=== PATIENT | male | born 1960 | race African-American/Black ===

== ENCOUNTER 2017-11-03 18:50 | Emergency (ER) | payer MEDICAID, OTHER ==
[~2017-11-03] VITALS: Ht 175.3 cm; Wt 122.0 kg
[~2017-11-03 18:50] MED LIST: ASPI-1159 PO; CLON0.3T PO; DILT240C92 PO; LISI40TA4 PO
[2017-11-03] MEDS ORDERED: CLONIDINE 0.1MG TABLET PO ONE (20:15)
[2017-11-03] MEDS ORDERED: IBUPROFEN 600MG TABLET PO ONE (20:15)
[2017-11-03 22:01] VITALS: BP 149/92
== END 2017-11-03 22:01 | disposition home or self-care (01) ==
LOC: ER 18:50
DX: S09.8XXA Other specified injuries of head, initial encounter (principal); W22.8XXA Striking against or struck by other objects, initial encounter; Y93.89 Activity, other specified; Y92.89 Other specified places as the place of occurrence of the external cause
CPT/HCPCS: 70450; 99284

== ENCOUNTER 2018-04-19 10:59 | Inpatient (IN) | payer OTHER, SELFPAY ==
[~2018-04-19] VITALS: Ht 175.3 cm; Wt 125.7 kg
[2018-04-19] MEDS ORDERED: ASPIRIN 81MG TABLET PO ONE ×2 (11:30→12:30)
[2018-04-19 12:06] LABS: BASOPHILS % 0.7 % (0.0-2.0); EOSINOPHILS % 2.6 % (0.0-5.0); HEMATOCRIT. 48.2 % (42.0-52.0); HEMOGLOBIN. 16.2 g/dL (14.0-18.0); LYMPHOCYTES % 18.7 % (20.0-50.0); MEAN CORPUSCULAR HEMOGLOBIN 30.7 pg (28.0-32.0); MEAN CORPUSCULAR VOLUME 91.3 fL (80.0-94.0); MEAN PLATELET VOLUME 10.8 fl (7.4-10.4); MONOCYTES % 10.3 % (2.0-8.0); NEUTROPHILS % 67.7 % (40.0-76.0); PLATELET 194 x1000/uL (130-400); RED BLOOD CELL COUNT 5.28 mill/uL (4.7-6.1); RED CELL DISTRIBUTION WIDTH 13.9 % (11.6-14.6)
[2018-04-19 12:15] LABS: CHLORIDE 108 mEq/L (98-107)
[2018-04-19] MEDS ORDERED: FUROSEMIDE 40MG/4ML VIAL IV ONE (12:30)
[2018-04-19] MEDS ORDERED: ACETAMINOPHEN 325MG TABLET PO PRN (14:45)
[2018-04-19] MEDS ORDERED: IPRATROPIUM/ALBUTEROL 0.5-3(2.5)MG/3ML NEB INH PRN (14:45)
[2018-04-19] MEDS ORDERED: MAGNESIUM/ALUMINUM HYDROXIDE/SIMETHICONE 30ML UDC PO PRN (14:45)
[2018-04-19] MEDS ORDERED: DOCUSATE SODIUM 100MG CAPSULE PO PRN (14:45)
[2018-04-19] MEDS ORDERED: ONDANSETRON HCL 4MG/2ML INJ IV PRN (14:45)
[2018-04-19] MEDS ORDERED: GUAIFENESIN 200MG/10ML SUGAR FREE UDC PO PRN (14:45)
[2018-04-19] MEDS ORDERED: HYDROCODONE/ACETAMINOPHEN 5/325MG TABLET PO PRN (14:45)
[2018-04-19 16:41] LABS: CREATINE KINASE 395 IU/L (39-308)
[2018-04-19] MEDS ORDERED: LISINOPRIL 10MG TABLET PO NR (18:57)
[2018-04-19] MEDS ORDERED: POTASSIUM CHLORIDE 20MEQ TABLET SR PO NR (19:02)
[2018-04-19] MEDS: CLONIDINE 0.1MG TABLET PO PRN (19:14)
[2018-04-19 19:21] LABS: *BENZODIAZEPINES SCREEN URINE NEGATIVE (NEGATIVE)
[2018-04-19 19:22] LABS: *AMPHETAMINES SCREEN URINE NEGATIVE (NEGATIVE); *BARBITURATES SCREEN URINE NEGATIVE (NEGATIVE); *COCAINE SCREEN URINE NEGATIVE (NEGATIVE); CANNABINOID URINE SCREEN NEGATIVE (NEGATIVE); METHADONE URINE SCREEN NEGATIVE (NEGATIVE); OPIATES URINE SCREEN NEGATIVE (NEGATIVE); PHENCYCLIDINE URINE SCREEN NEGATIVE (NEGATIVE)
[2018-04-19 20:07] LABS: CHLORIDE 107 mEq/L (98-107)
[2018-04-19 21:00] VITALS: BP 186/143
[2018-04-19] MEDS: LISINOPRIL 20MG TABLET PO SCH (22:37)
[2018-04-19] MEDS ORDERED: PNEUMOCOCCAL 23-VAL P-SAC VAC 0.5 ML IM ONE (23:45)
[2018-04-20] VITALS: BP 161/108
[2018-04-20] MEDS: CLONIDINE 0.1MG TABLET PO PRN ×2 (00:13→06:11)
[2018-04-20 04:00] VITALS: BP_SYST 148; BP_SYST 161; BP_DIAS 102; BP_DIAS 108
[2018-04-20 07:04] LABS: CHLORIDE 108 mEq/L (98-107)
[2018-04-20 07:07] LABS: BASOPHILS % 0.7 % (0.0-2.0); EOSINOPHILS % 2.9 % (0.0-5.0); HEMATOCRIT. 46.2 % (42.0-52.0); HEMOGLOBIN. 15.2 g/dL (14.0-18.0); LYMPHOCYTES % 23.2 % (20.0-50.0); MEAN CORPUSCULAR HEMOGLOBIN 30.3 pg (28.0-32.0); MEAN CORPUSCULAR VOLUME 91.9 fL (80.0-94.0); MEAN PLATELET VOLUME 11.5 fl (7.4-10.4); MONOCYTES % 9.3 % (2.0-8.0); NEUTROPHILS % 63.9 % (40.0-76.0); PLATELET 176 x1000/uL (130-400); RED BLOOD CELL COUNT 5.03 mill/uL (4.7-6.1); RED CELL DISTRIBUTION WIDTH 14.1 % (11.6-14.6)
[2018-04-20 07:34] LABS: PHOSPHORUS 3.5 mg/dL (2.5-4.9)
[2018-04-20 07:37] LABS: LDL CHOLESTEROL 104 mg/dL (5-100)
[2018-04-20 07:39] LABS: CREATINE KINASE 272 IU/L (39-308); CREATINE KINASE MB FRACTION 4.3 ng/mL (0.5-3.6)
[2018-04-20 07:40] LABS: HDL CHOLESTEROL 28 mg/dL (40-59)
[2018-04-20 08:00] VITALS: BP 133/101
[2018-04-20] MEDS: OMEPRAZOLE 20MG CAPSULE EXTENDED RELEASE PO SCH (08:31)
[2018-04-20] MEDS: ENOXAPARIN 30MG/0.3ML SYR SUBCUT SCH ×2 (08:32→21:52)
[2018-04-20] MEDS: LISINOPRIL 20MG TABLET PO SCH ×2 (08:46→21:51)
[2018-04-20] MEDS: ASPIRIN 81MG EC TABLET PO SCH (08:50)
[2018-04-20] MEDS ORDERED: LISINOPRIL 10MG TABLET PO SCH (09:00)
[2018-04-20] MEDS ORDERED: FUROSEMIDE 40MG/4ML VIAL IVP SCH (11:45)
[2018-04-20 12:00] VITALS: BP 147/105
[2018-04-20] MEDS ORDERED: POTASSIUM CHLORIDE 20MEQ/PACKET PO SCH (13:00)
[2018-04-20] MEDS ORDERED: REGADENOSON 0.4 MG/5 ML IV ONE (13:00)
[2018-04-20] MEDS: AMLODIPINE 5MG TABLET PO SCH ×2 (13:00→21:51)
[2018-04-20 16:00] VITALS: BP 171/125
[2018-04-20] MEDS ORDERED: ONDANSETRON HCL 4MG/2ML INJ IV PRN (18:00)
[2018-04-20 19:24] LABS: CLARITY URINE CLEAR (CLEAR); COLOR URINE YELLOW (YELLOW); KETONES URINE NEGATIVE (NEGATIVE); LEUKOCYTE ESTERASE URINE NEGATIVE (NEGATIVE); NITRITE URINE NEGATIVE (NEGATIVE); OCCULT BLOOD URINE NEGATIVE (NEGATIVE); PH URINE 5.5 (4.5-8.0); PROTEIN URINE TRACE (NEGATIVE); SPECIFIC GRAVITY URINE 1.011 (1.005-1.030); UROBILINOGEN URINE 0.2 E.U./dL (0.2-1.0)
[2018-04-20] MEDS ORDERED: MAGNESIUM/ALUMINUM HYDROXIDE/SIMETHICONE 30ML UDC PO PRN (19:45)
[2018-04-21] VITALS: BP 137/92
[2018-04-21 04:00] VITALS: BP 148/100
[2018-04-21 06:51] LABS: BASOPHILS % 0.6 % (0.0-2.0); EOSINOPHILS % 2.3 % (0.0-5.0); HEMATOCRIT. 44.8 % (42.0-52.0); HEMOGLOBIN. 14.8 g/dL (14.0-18.0); MEAN CORPUSCULAR HEMOGLOBIN 30.6 pg (28.0-32.0); MEAN CORPUSCULAR VOLUME 92.5 fL (80.0-94.0); MEAN PLATELET VOLUME 11.7 fl (7.4-10.4); MONOCYTES % 8.2 % (2.0-8.0); NEUTROPHILS % 65.9 % (40.0-76.0); PLATELET 178 x1000/uL (130-400); RED BLOOD CELL COUNT 4.85 mill/uL (4.7-6.1); RED CELL DISTRIBUTION WIDTH 14.2 % (11.6-14.6)
[2018-04-21 08:00] VITALS: BP 148/101
[2018-04-21] MEDS: AMLODIPINE 5MG TABLET PO SCH (09:00)
[2018-04-21] MEDS: OMEPRAZOLE 20MG CAPSULE EXTENDED RELEASE PO SCH (09:00)
[2018-04-21] MEDS: ASPIRIN 81MG EC TABLET PO SCH (09:00)
[2018-04-21] MEDS: LISINOPRIL 20MG TABLET PO SCH (09:00)
[2018-04-21] MEDS: ENOXAPARIN 30MG/0.3ML SYR SUBCUT SCH (09:04)
[2018-04-21 10:50] VITALS: BP 146/99
[2018-04-21] MEDS ORDERED: REGADENOSON 0.4 MG/5 ML IV ONE (11:32)
[2018-04-21 13:10] LABS: PHOSPHORUS 4.3 mg/dL (2.5-4.9)
[2018-04-21] MEDS ORDERED: POTASSIUM CHLORIDE 20MEQ TABLET SR PO NR (14:30)
[2018-04-21] MEDS ORDERED: CARVEDILOL 3.125 MG TABLET PO SCH (14:30)
[2018-04-21] MEDS ORDERED: LOSARTAN POTASSIUM 50 MG TABLET PO SCH (14:30)
[2018-04-21 16:00] VITALS: BP 137/87
[2018-04-21 16:13] VITALS: BP 136/90
[2018-04-22] MEDS ORDERED: FAMOTIDINE 20MG TABLET PO SCH (09:00)
== END 2018-04-21 17:16 | disposition home or self-care (01) | DRG 194 ==
LOC: ER 11:37 → 7WST 13:07 → EDBEDREQ 13:18 → ENRESERV 19:52
PROVIDERS: ADMIT Internal Medicine; ATTEND Internal Medicine
DX: I13.0 Hypertensive heart and chronic kidney disease with heart failure and stage 1 through stage 4 chronic kidney disease, or unspecified chronic kidney disease (principal); N17.9 Acute kidney failure, unspecified; E44.1 Mild protein-calorie malnutrition; E66.01 Morbid (severe) obesity due to excess calories; E87.8 Other disorders of electrolyte and fluid balance, not elsewhere classified; I42.9 Cardiomyopathy, unspecified; K76.0 Fatty (change of) liver, not elsewhere classified; I50.43 Acute on chronic combined systolic (congestive) and diastolic (congestive) heart failure; E87.6 Hypokalemia; F17.200 Nicotine dependence, unspecified, uncomplicated; I49.3 Ventricular premature depolarization; N18.2 Chronic kidney disease, stage 2 (mild); Z68.41 Body mass index [BMI] 40.0-44.9, adult; Z82.49 Family history of ischemic heart disease and other diseases of the circulatory system
CPT/HCPCS: 36415; 71045; 76705; 78452; 80048; 80061; 80305; 82550; 82553; 83735; 83880; 84100; 84443; 84484; 85379; 90732; 93005; 93017; 93306; 93970; 96374; 99291; A9500; J1650; J1940; J2405; J2785

== ENCOUNTER 2018-05-07 10:47 | Emergency (ER) | payer MEDICAID ==
[~2018-05-07] VITALS: Ht 175.3 cm; Wt 123.0 kg
[~2018-05-07 10:47] MED LIST changes: -CLON0.3T PO; -DILT240C92 PO; -LISI40TA4 PO
[2018-05-07] MEDS ORDERED: AMLO5TAB88 PO (11:06)
[2018-05-07] MEDS ORDERED: CARV3.1242 PO (11:06)
[2018-05-07] MEDS ORDERED: FURO40TA5 PO (11:06)
[2018-05-07] MEDS ORDERED: LOSA50TA20 PO (11:06)
[2018-05-07 13:33] LABS: BASOPHILS % 0.5 % (0.0-2.0); EOSINOPHILS % 1.1 % (0.0-5.0); HEMATOCRIT. 48.1 % (42.0-52.0); HEMOGLOBIN. 15.9 g/dL (14.0-18.0); LYMPHOCYTES % 10.7 % (20.0-50.0); MEAN CORPUSCULAR HEMOGLOBIN 30.5 pg (28.0-32.0); MEAN CORPUSCULAR VOLUME 92.1 fL (80.0-94.0); NEUTROPHILS % 76.7 % (40.0-76.0); RED BLOOD CELL COUNT 5.22 mill/uL (4.7-6.1); RED CELL DISTRIBUTION WIDTH 13.5 % (11.6-14.6)
[2018-05-07 13:34] LABS: CHLORIDE 107 mEq/L (98-107)
[2018-05-07 13:38] LABS: *AMPHETAMINES SCREEN URINE NEGATIVE (NEGATIVE); *BARBITURATES SCREEN URINE NEGATIVE (NEGATIVE); *BENZODIAZEPINES SCREEN URINE NEGATIVE (NEGATIVE)
[2018-05-07 13:38] LABS: ETHANOL BLOOD < 10 mg/dL; INR 1.1; PARTIAL THROMBOPLASTIN TIME 28.5 sec (23.4-31.0); PROTHROMBIN TIME 11.4 sec (9.1-11.1)
[2018-05-07 13:40] LABS: *COCAINE SCREEN URINE NEGATIVE (NEGATIVE); CANNABINOID URINE SCREEN NEGATIVE (NEGATIVE); METHADONE URINE SCREEN NEGATIVE (NEGATIVE); OPIATES URINE SCREEN NEGATIVE (NEGATIVE); PHENCYCLIDINE URINE SCREEN NEGATIVE (NEGATIVE)
[2018-05-07 13:51] LABS: PLATELET 239 x1000/uL (130-400)
[2018-05-07] MEDS ORDERED: FUROSEMIDE 40MG/4ML VIAL IVP ONE (14:00)
[2018-05-07 15:30] VITALS: BP 158/91
== END 2018-05-07 16:01 | disposition home or self-care (01) ==
LOC: ER 11:42
DX: I11.0 Hypertensive heart disease with heart failure (principal); I50.9 Heart failure, unspecified; E66.01 Morbid (severe) obesity due to excess calories; Z68.41 Body mass index [BMI] 40.0-44.9, adult
CPT/HCPCS: 36415; 71045; 80053; 80305; 83880; 84484; 85025; 85610; 85730; 87186; 93005; 96374; 99284; J1940

== ENCOUNTER 2018-05-21 10:24 | Emergency (ER) | payer MEDICAID ==
[~2018-05-21] VITALS: Ht 175.3 cm; Wt 118.0 kg
[~2018-05-21 10:24] MED LIST changes: +AMLO5TAB88 PO; +CARV3.1242 PO; +FURO40TA5 PO; +LOSA50TA20 PO
[2018-05-21 12:43] VITALS: BP 167/104
== END 2018-05-21 17:12 | disposition home or self-care (01) ==
LOC: ER 10:24
DX: S83.92XA Sprain of unspecified site of left knee, initial encounter (principal); M79.672 Pain in left foot; X58.XXXA Exposure to other specified factors, initial encounter; Y93.9 Activity, unspecified; Y92.9 Unspecified place or not applicable; T78.8XXA Other adverse effects, not elsewhere classified, initial encounter; I10 Essential (primary) hypertension
CPT/HCPCS: 73562; 99283

== ENCOUNTER 2018-08-06 02:08 | Inpatient (IN) | payer SELFPAY ==
[~2018-08-06] VITALS: Ht 175.3 cm; Wt 131.1 kg
[2018-08-06] VITALS (11 sets, daily range): BP systolic 130–168; BP diastolic 51–121
[2018-08-06] MEDS ORDERED: ALBUTEROL (0.083%) 2.5MG/3ML NEB HHN STA (02:59)
[2018-08-06] MEDS ORDERED: IPRATROPIUM BROMIDE (0.02%) 0.5MG/2.5ML NEB HHN STA (02:59)
[2018-08-06] MEDS ORDERED: FUROSEMIDE 40MG TABLET PO ONE (03:00)
[2018-08-06 03:23] LABS: BASOPHILS % 0.7 % (0.0-2.0); EOSINOPHILS % 1.6 % (0.0-5.0); HEMATOCRIT. 44.5 % (42.0-52.0); HEMOGLOBIN. 15.1 g/dL (14.0-18.0); LYMPHOCYTES % 16.6 % (20.0-50.0); MEAN CORPUSCULAR HEMOGLOBIN 31.5 pg (28.0-32.0); MEAN CORPUSCULAR VOLUME 92.8 fL (80.0-94.0); MEAN PLATELET VOLUME 10.7 fl (7.4-10.4); MONOCYTES % 9.4 % (2.0-8.0); NEUTROPHILS % 71.7 % (40.0-76.0); PLATELET 158 x1000/uL (130-400); RED BLOOD CELL COUNT 4.79 mill/uL (4.7-6.1); RED CELL DISTRIBUTION WIDTH 16.5 % (11.6-14.6)
[2018-08-06 03:24] LABS: CHLORIDE 113 mEq/L (98-107)
[2018-08-06] MEDS ORDERED: ASPIRIN 81MG TABLET PO NR (04:00)
[2018-08-06] MEDS ORDERED: FUROSEMIDE 40MG/4ML VIAL IVP ONE (04:00)
[2018-08-06] MEDS ORDERED: ASPIRIN 325MG EC TABLET PO NR (04:00)
[2018-08-06] MEDS ORDERED: HEPARIN SODIUM 1,000 UNIT/1ML VIAL IV ONE (04:15)
[2018-08-06] MEDS ORDERED: POTASSIUM CHLORIDE 20MEQ TABLET SR PO NR (04:30)
[2018-08-06] MEDS ORDERED: HEPARIN 60 UNITS/KG BOLUS IV NR (05:00)
[2018-08-06] MEDS ORDERED: HEPARIN 60 UNITS/KG BOLUS IV SCH (05:00)
[2018-08-06] MEDS ORDERED: MAGNESIUM/ALUMINUM HYDROXIDE/SIMETHICONE 30ML UDC PO PRN (07:45)
[2018-08-06] MEDS ORDERED: ACETAMINOPHEN 325MG TABLET PO PRN (07:45)
[2018-08-06] MEDS ORDERED: DOCUSATE SODIUM 100MG CAPSULE PO PRN (07:45)
[2018-08-06] MEDS ORDERED: ZOLPIDEM TARTRATE 5MG TABLET PO PRN (07:45)
[2018-08-06] MEDS ORDERED: IPRATROPIUM/ALBUTEROL 0.5-3(2.5)MG/3ML NEB INH PRN (07:45)
[2018-08-06] MEDS ORDERED: TRAMADOL 50MG TABLET PO PRN (07:45)
[2018-08-06] MEDS ORDERED: GUAIFENESIN 200MG/10ML SUGAR FREE UDC PO PRN (07:45)
[2018-08-06] MEDS ORDERED: LORAZEPAM 0.5MG TABLET PO PRN (07:45)
[2018-08-06] MEDS ORDERED: ONDANSETRON HCL 4MG/2ML INJ IV PRN (07:45)
[2018-08-06] MEDS ORDERED: CLONIDINE 0.1MG TABLET PO PRN (07:45)
[2018-08-06 07:54] LABS: ETHANOL BLOOD < 10 mg/dL
[2018-08-06 07:57] LABS: LDL CHOLESTEROL 90 mg/dL (5-100)
[2018-08-06 07:59] LABS: HDL CHOLESTEROL 26 mg/dL (40-59)
[2018-08-06] MEDS ORDERED: NITROGLYCERIN 0.4MG TABLET SL SL PRN (09:00)
[2018-08-06] MEDS ORDERED: METOPROLOL TARTRATE 25MG TABLET PO SCH (09:00)
[2018-08-06] MEDS: AMLODIPINE 10MG TABLET PO SCH (09:14)
[2018-08-06] MEDS: LISINOPRIL 20MG TABLET PO SCH ×2 (09:14→21:45)
[2018-08-06] MEDS: FAMOTIDINE 20MG TABLET PO SCH ×2 (09:14→21:45)
[2018-08-06] MEDS: ENOXAPARIN 120MG/0.8ML SYR SUBCUT SCH ×2 (09:15→21:46)
[2018-08-06] MEDS ORDERED: FUROSEMIDE 40MG/4ML VIAL IVP SCH (09:30)
[2018-08-06 12:01] LABS: *AMPHETAMINES SCREEN URINE NEGATIVE (NEGATIVE); *BARBITURATES SCREEN URINE NEGATIVE (NEGATIVE)
[2018-08-06 12:02] LABS: *BENZODIAZEPINES SCREEN URINE NEGATIVE (NEGATIVE); *COCAINE SCREEN URINE NEGATIVE (NEGATIVE); CANNABINOID URINE SCREEN NEGATIVE (NEGATIVE); METHADONE URINE SCREEN NEGATIVE (NEGATIVE); OPIATES URINE SCREEN NEGATIVE (NEGATIVE); PHENCYCLIDINE URINE SCREEN NEGATIVE (NEGATIVE)
[2018-08-06] MEDS: HYDRALAZINE HCL 50MG TABLET PO SCH ×2 (14:41→23:28)
[2018-08-06 15:29] LABS: CREATINE KINASE MB FRACTION 9.6 ng/mL (0.5-3.6)
[2018-08-06] MEDS: FUROSEMIDE 40MG/4ML VIAL IVP SCH (16:24)
[2018-08-06] MEDS: CARVEDILOL 12.5MG TABLET PO SCH (21:46)
[2018-08-07] VITALS (18 sets, daily range): BP systolic 97–157; BP diastolic 43–105
[2018-08-07 00:02] LABS: CREATINE KINASE MB FRACTION 7.9 ng/mL (0.5-3.6)
[2018-08-07] MEDS: HYDRALAZINE HCL 50MG TABLET PO SCH ×3 (06:55→22:00)
[2018-08-07 07:03] LABS: INR 1.3; PROTHROMBIN TIME 13.2 sec (9.6-11.0)
[2018-08-07] MEDS: CARVEDILOL 12.5MG TABLET PO SCH ×2 (08:38→22:25)
[2018-08-07] MEDS: AMLODIPINE 10MG TABLET PO SCH (08:38)
[2018-08-07] MEDS: LISINOPRIL 20MG TABLET PO SCH ×2 (08:38→22:25)
[2018-08-07] MEDS: FAMOTIDINE 20MG TABLET PO SCH ×2 (08:39→22:25)
[2018-08-07] MEDS: ASPIRIN 325MG EC TABLET PO SCH (08:39)
[2018-08-07] MEDS: ENOXAPARIN 120MG/0.8ML SYR SUBCUT SCH ×2 (08:39→22:26)
[2018-08-07 09:31] LABS: BASOPHILS % 0.7 % (0.0-2.0); EOSINOPHILS % 2.4 % (0.0-5.0); HEMATOCRIT. 44.9 % (42.0-52.0); HEMOGLOBIN. 14.9 g/dL (14.0-18.0); LYMPHOCYTES % 17.1 % (20.0-50.0); MEAN CORPUSCULAR HEMOGLOBIN 31.4 pg (28.0-32.0); MEAN CORPUSCULAR VOLUME 94.8 fL (80.0-94.0); MONOCYTES % 9.4 % (2.0-8.0); NEUTROPHILS % 70.4 % (40.0-76.0); PLATELET 145 x1000/uL (130-400); RED BLOOD CELL COUNT 4.74 mill/uL (4.7-6.1); RED CELL DISTRIBUTION WIDTH 16.7 % (11.6-14.6)
[2018-08-07] MEDS: FUROSEMIDE 40MG/4ML VIAL IVP SCH ×2 (12:11→17:26)
[2018-08-08] VITALS (16 sets, daily range): BP systolic 54–139; BP diastolic 30–74
[2018-08-08] MEDS: FUROSEMIDE 40MG/4ML VIAL IVP SCH (06:16)
[2018-08-08] MEDS: HYDRALAZINE HCL 50MG TABLET PO SCH ×3 (06:16→22:00)
[2018-08-08 07:26] LABS: BASOPHILS % 0.6 % (0.0-2.0); EOSINOPHILS % 1.4 % (0.0-5.0); HEMATOCRIT. 43.8 % (42.0-52.0); HEMOGLOBIN. 14.8 g/dL (14.0-18.0); LYMPHOCYTES % 14.1 % (20.0-50.0); MEAN PLATELET VOLUME 11.1 fl (7.4-10.4); MONOCYTES % 12.7 % (2.0-8.0); NEUTROPHILS % 71.2 % (40.0-76.0); PLATELET 137 x1000/uL (130-400); RED BLOOD CELL COUNT 4.61 mill/uL (4.7-6.1); RED CELL DISTRIBUTION WIDTH 16.5 % (11.6-14.6)
[2018-08-08] MEDS: AMLODIPINE 10MG TABLET PO SCH (09:28)
[2018-08-08] MEDS: CARVEDILOL 12.5MG TABLET PO SCH ×2 (09:29→22:07)
[2018-08-08] MEDS: ASPIRIN 325MG EC TABLET PO SCH (09:29)
[2018-08-08] MEDS: LISINOPRIL 20MG TABLET PO SCH ×2 (09:29→22:06)
[2018-08-08] MEDS: FAMOTIDINE 20MG TABLET PO SCH ×2 (09:29→22:06)
[2018-08-08] MEDS ORDERED: POTASSIUM CHLORIDE 20MEQ TABLET SR PO NR (10:30)
[2018-08-08] MEDS: ENOXAPARIN 40MG/0.4ML SYR SUBCUT SCH ×2 (10:48→22:10)
[2018-08-08] MEDS: FUROSEMIDE 100MG/10ML VIAL IVP SCH (18:03)
[2018-08-09] VITALS (12 sets, daily range): BP systolic 96–154; BP diastolic 48–125
[2018-08-09] MEDS: HYDRALAZINE HCL 50MG TABLET PO SCH ×4 (06:54→21:20)
[2018-08-09] MEDS: FUROSEMIDE 100MG/10ML VIAL IVP SCH ×2 (07:15→17:21)
[2018-08-09] MEDS: CARVEDILOL 12.5MG TABLET PO SCH ×2 (08:59→21:20)
[2018-08-09] MEDS: LISINOPRIL 20MG TABLET PO SCH ×2 (08:59→21:20)
[2018-08-09] MEDS: ASPIRIN 325MG EC TABLET PO SCH (08:59)
[2018-08-09] MEDS: AMLODIPINE 10MG TABLET PO SCH (09:00)
[2018-08-09] MEDS: FAMOTIDINE 20MG TABLET PO SCH ×2 (09:00→21:20)
[2018-08-09] MEDS: ENOXAPARIN 40MG/0.4ML SYR SUBCUT SCH ×2 (12:23→21:20)
[2018-08-09] MEDS ORDERED: POTASSIUM CHLORIDE 20MEQ TABLET SR PO SCH (14:00)
[2018-08-10] VITALS (9 sets, daily range): BP systolic 101–140; BP diastolic 54–87
[2018-08-10 06:22] LABS: BASOPHILS % 0.3 % (0.0-2.0); EOSINOPHILS % 1.1 % (0.0-5.0); HEMATOCRIT. 43.4 % (42.0-52.0); HEMOGLOBIN. 14.6 g/dL (14.0-18.0); LYMPHOCYTES % 11.4 % (20.0-50.0); MEAN CORPUSCULAR HEMOGLOBIN 31.9 pg (28.0-32.0); MEAN CORPUSCULAR VOLUME 95.3 fL (80.0-94.0); MEAN PLATELET VOLUME 11.3 fl (7.4-10.4); MONOCYTES % 13.1 % (2.0-8.0); NEUTROPHILS % 74.1 % (40.0-76.0); PLATELET 162 x1000/uL (130-400); RED BLOOD CELL COUNT 4.56 mill/uL (4.7-6.1); RED CELL DISTRIBUTION WIDTH 16.2 % (11.6-14.6)
[2018-08-10 06:24] LABS: CHLORIDE 111 mEq/L (98-107)
[2018-08-10] MEDS: HYDRALAZINE HCL 50MG TABLET PO SCH ×2 (06:42→13:28)
[2018-08-10] MEDS: FUROSEMIDE 100MG/10ML VIAL IVP SCH (06:43)
[2018-08-10] MEDS: LISINOPRIL 20MG TABLET PO SCH (08:18)
[2018-08-10] MEDS: CARVEDILOL 12.5MG TABLET PO SCH (08:19)
[2018-08-10] MEDS: AMLODIPINE 10MG TABLET PO SCH (08:19)
[2018-08-10] MEDS: ASPIRIN 325MG EC TABLET PO SCH (08:19)
[2018-08-10] MEDS: FAMOTIDINE 20MG TABLET PO SCH (08:19)
[2018-08-10] MEDS: ENOXAPARIN 40MG/0.4ML SYR SUBCUT SCH (10:08)
[2018-08-10 12:45] LABS: BG BASE EXCESS 4.6 mmol/L (-2.0-2.0); BG CARBOXYHEMOGLOBIN 1.1 % (0.5-1.5); BG DEOXYHEMOGLOBIN 3.4 % (0.0-5.0); BG FRACTION INSPIRED OXYGEN 21; BG METHEMOGLOBIN 0.2 % (0.0-1.5); BG OXYGEN SATURATION 96.6 % (92.0-98.5); BG OXYHEMOGLOBIN 95.3 % (94.0-97.0); BG PCO2 29.7 mmHg (35.0-45.0); BG PO2 76.6 mmHg (75.0-100.0); BG SAMPLE SITE RIGHT BRACHIAL; BG TOTAL HEMOGLOBIN 14.5 g/dL (12.0-18.0); BG VENT MODE ROOM AIR
[2018-08-10] MEDS ORDERED: FUROSEMIDE 40MG TABLET PO SCH (17:15)
== END 2018-08-10 16:05 | disposition home or self-care (01) | DRG 190 ==
LOC: ER 02:08 → 3WST 04:19 → EDBEDREQTM 04:21 → EDBEDREQ 04:21 → ENRESERV 07:16
PROVIDERS: ADMIT Internal Medicine; ATTEND Internal Medicine
DX: I21.4 Non-ST elevation (NSTEMI) myocardial infarction (principal); I50.43 Acute on chronic combined systolic (congestive) and diastolic (congestive) heart failure; E87.0 Hyperosmolality and hypernatremia; N17.9 Acute kidney failure, unspecified; E44.0 Moderate protein-calorie malnutrition; I42.9 Cardiomyopathy, unspecified; Z68.41 Body mass index [BMI] 40.0-44.9, adult; I11.0 Hypertensive heart disease with heart failure; M10.9 Gout, unspecified; E66.9 Obesity, unspecified; R74.0 Nonspecific elevation of levels of transaminase and lactic acid dehydrogenase [LDH]; E87.6 Hypokalemia; I50.82 Biventricular heart failure; Z79.899 Other long term (current) drug therapy; Z91.14 Patient's other noncompliance with medication regimen; Z91.19 Patient's noncompliance with other medical treatment and regimen
CPT/HCPCS: 36415; 36600; 71045; 76770; 80048; 80061; 80305; 80320; 82375; 82550; 82553; 82805; 83036; 83735; 83880; 84484; 93005; 93306; 93970; 94640; 96374; 99285; J1644; J1650; J1940; J7611; J7620; G0480

== ENCOUNTER 2018-11-22 23:33 | Emergency (ER) | payer MEDICAID ==
[~2018-11-22] VITALS: Ht 175.3 cm; Wt 117.0 kg
[~2018-11-22 23:33] MED LIST changes: -AMLO5TAB88 PO; -ASPI-1159 PO; +ASPI-1393 PO; -CARV3.1242 PO; -FURO40TA5 PO; -LOSA50TA20 PO; +LOSA50TA41 PO
[2018-11-23] MEDS ORDERED: MORPHINE SULFATE 4 MG/ML CPJ (NOT FOR IM USE) IV STA (00:58)
[2018-11-23] MEDS ORDERED: ONDANSETRON HCL 4MG/2ML INJ IV STA (00:58)
[2018-11-23] MEDS ORDERED: METHOCARBAMOL 500MG TABLET PO ONE (01:00)
[2018-11-23 05:00] VITALS: BP 180/109
== END 2018-11-23 05:07 | disposition home or self-care (01) ==
LOC: ER 23:33
DX: M54.42 Lumbago with sciatica, left side (principal)
CPT/HCPCS: 72100; 96374; 96375; 99283; J2270; J2405

== ENCOUNTER 2019-12-13 12:35 | Inpatient (IN) | payer MEDICAID ==
[~2019-12-13] VITALS: Ht 175.3 cm; Wt 114.3 kg
[~2019-12-13 12:35] MED LIST changes: -ASPI-1393 PO; +ASPI-1497 PO
[2019-12-13] MEDS ORDERED: DIPHENHYDRAMINE 50MG/ML VIAL IV ONE (13:00)
[2019-12-13] MEDS ORDERED: FAMOTIDINE 20MG/2ML VIAL IV ONE (13:00)
[2019-12-13] MEDS ORDERED: METHYLPREDNISOLONE SOD SUCC 125 MG/2 ML VIAL IV ONE (13:00)
[2019-12-13 13:34] LABS: BASOPHILS % 0.6 % (0.0-2.0); EOSINOPHILS % 0.6 % (0.0-5.0); HEMATOCRIT. 34.4 % (42.0-52.0); HEMOGLOBIN. 11.7 g/dL (14.0-18.0); LYMPHOCYTES % 9.2 % (20.0-50.0); MEAN CORPUSCULAR HEMOGLOBIN 29.8 pg (28.0-32.0); MEAN CORPUSCULAR VOLUME 87.9 fL (80.0-94.0); MEAN PLATELET VOLUME 9.7 fl (7.4-10.4); MONOCYTES % 9.3 % (2.0-8.0); NEUTROPHILS % 80.3 % (40.0-76.0); PLATELET 289 x1000/uL (130-400); RED BLOOD CELL COUNT 3.91 mill/uL (4.7-6.1); RED CELL DISTRIBUTION WIDTH 13.3 % (11.6-14.6)
[2019-12-13 13:39] LABS: CHLORIDE 107 mEq/L (98-107)
[2019-12-13 14:19] LABS: INR 1.2; PROTHROMBIN TIME 12.4 sec (9.6-11.0)
[2019-12-13] MEDS ORDERED: ACETAMINOPHEN 325MG TABLET PO PRN ×2 (14:45)
[2019-12-13] MEDS ORDERED: IPRATROPIUM/ALBUTEROL 0.5-3(2.5)MG/3ML NEB NEB PRN (14:45)
[2019-12-13] MEDS ORDERED: GUAIFENESIN 200MG/10ML SUGAR FREE UDC PO PRN (14:45)
[2019-12-13] MEDS ORDERED: DOCUSATE SODIUM 100MG CAPSULE PO PRN (14:45)
[2019-12-13] MEDS ORDERED: MAGNESIUM/ALUMINUM HYDROXIDE/SIMETHICONE 30ML UDC PO PRN (14:45)
[2019-12-13] MEDS ORDERED: DIPHENHYDRAMINE 50MG/ML VIAL IV PRN (14:45)
[2019-12-13] MEDS ORDERED: ONDANSETRON HCL 4MG/2ML INJ IV PRN (14:45)
[2019-12-13] MEDS ORDERED: NA PHOS,M-B/NA PHOS,DI-BA ENEMA 118ML PR PRN (14:45)
[2019-12-13] MEDS ORDERED: NITROGLYCERIN 0.4MG TABLET SL SL PRN (14:45)
[2019-12-13] MEDS ORDERED: KETOROLAC 15MG/ML VIAL IV PRN (14:51)
[2019-12-13 16:06] LABS: CLARITY URINE CLEAR (CLEAR); COLOR URINE YELLOW (YELLOW); KETONES URINE NEGATIVE (NEGATIVE); LEUKOCYTE ESTERASE URINE 1+ (NEGATIVE); NITRITE URINE POSITIVE (NEGATIVE); OCCULT BLOOD URINE NEGATIVE (NEGATIVE); PROTEIN URINE NEGATIVE (NEGATIVE); SPECIFIC GRAVITY URINE 1.014 (1.005-1.030); UROBILINOGEN URINE 0.2 E.U./dL (0.2-1.0)
[2019-12-13 16:31] LABS: TOTAL IRON BINDING CAPACITY 230 ug/dL (250-450)
[2019-12-13] MEDS: ALLOPURINOL 100 MG TABLET PO SCH (16:38)
[2019-12-13 16:41] LABS: *AMPHETAMINES SCREEN URINE NEGATIVE (NEGATIVE); *BARBITURATES SCREEN URINE NEGATIVE (NEGATIVE); *BENZODIAZEPINES SCREEN URINE NEGATIVE (NEGATIVE); *COCAINE SCREEN URINE NEGATIVE (NEGATIVE); METHADONE URINE SCREEN NEGATIVE (NEGATIVE); OPIATES URINE SCREEN NEGATIVE (NEGATIVE); PHENCYCLIDINE URINE SCREEN NEGATIVE (NEGATIVE)
[2019-12-13 16:43] LABS: CANNABINOID URINE SCREEN NEGATIVE (NEGATIVE)
[2019-12-13 16:53] LABS: FOLIC ACID (FOLATE) SERUM > 20.00 ng/mL (>5.38); VITAMIN B12 SERUM 805 pg/mL (211-911)
[2019-12-13] MEDS: ENOXAPARIN 30MG/0.3ML SYR SUBCUT SCH (18:46)
[2019-12-13] MEDS ORDERED: ZOLPIDEM TARTRATE 5MG TABLET PO PRN (20:00)
[2019-12-13] MEDS: FAMOTIDINE 20MG TABLET PO SCH (20:39)
[2019-12-13] MEDS: METHYLPREDNISOLONE SOD SUCC 125 MG/2 ML VIAL IV SCH (22:00)
[2019-12-14 00:10] VITALS: BP 162/100
[2019-12-14] MEDS ORDERED: ALBU6.7H9 INH (03:26)
[2019-12-14] MEDS ORDERED: ISOS30TA6 MT (03:29)
[2019-12-14] MEDS ORDERED: FURO80TA3 MT (03:30)
[2019-12-14] MEDS ORDERED: SPIR25TA6 PO (03:34)
[2019-12-14] MEDS ORDERED: LISI-604 MT (03:34)
[2019-12-14] MEDS ORDERED: COR25 MT (03:34)
[2019-12-14] MEDS ORDERED: MULT-1116 MT (03:34)
[2019-12-14] MEDS ORDERED: HYDR-4134 MT (03:34)
[2019-12-14] MEDS ORDERED: ASPI-1497 MT (03:34)
[2019-12-14 04:00] VITALS: BP 165/108
[2019-12-14] MEDS: CLONIDINE 0.1MG TABLET PO PRN ×2 (06:39→13:22)
[2019-12-14] MEDS: ENOXAPARIN 30MG/0.3ML SYR SUBCUT SCH ×2 (06:39→18:30)
[2019-12-14] MEDS: METHYLPREDNISOLONE SOD SUCC 125 MG/2 ML VIAL IV SCH ×3 (06:57→21:15)
[2019-12-14 08:00] VITALS: BP 149/90
[2019-12-14] MEDS: FAMOTIDINE 20MG TABLET PO SCH ×2 (09:14→21:15)
[2019-12-14] MEDS: ALLOPURINOL 100 MG TABLET PO SCH (09:14)
[2019-12-14 12:00] VITALS: BP 175/113
[2019-12-14 16:00] VITALS: BP 156/89
[2019-12-14 20:12] VITALS: BP 158/101
[2019-12-15] VITALS: BP 161/95
[2019-12-15 04:00] VITALS: BP 166/104
[2019-12-15] MEDS: CLONIDINE 0.1MG TABLET PO PRN ×2 (04:51→09:22)
[2019-12-15] MEDS: ENOXAPARIN 30MG/0.3ML SYR SUBCUT SCH (06:13)
[2019-12-15] MEDS: METHYLPREDNISOLONE SOD SUCC 125 MG/2 ML VIAL IV SCH ×2 (06:13→13:10)
[2019-12-15 08:30] VITALS: BP 172/110
[2019-12-15] MEDS: FAMOTIDINE 20MG TABLET PO SCH (09:22)
[2019-12-15] MEDS: ALLOPURINOL 100 MG TABLET PO SCH (09:22)
[2019-12-15] MEDS ORDERED: CARVEDILOL 12.5MG TABLET PO SCH (09:45)
[2019-12-15 12:15] VITALS: BP 162/104
[2019-12-15] MEDS ORDERED: HYDRALAZINE HCL 50MG TABLET PO SCH (14:00)
[2019-12-15 15:01] VITALS: BP 148/92
== END 2019-12-15 16:10 | disposition home or self-care (01) | DRG 351 ==
LOC: ER 12:35 → MICUSO 13:36 → 6WST 21:43
PROVIDERS: ADMIT Internal Medicine; ATTEND Internal Medicine
DX: M10.062 Idiopathic gout, left knee (principal); T78.3XXA Angioneurotic edema, initial encounter; I11.0 Hypertensive heart disease with heart failure; E44.0 Moderate protein-calorie malnutrition; D63.8 Anemia in other chronic diseases classified elsewhere; T46.4X5A Adverse effect of angiotensin-converting-enzyme inhibitors, initial encounter; I50.9 Heart failure, unspecified; N17.0 Acute kidney failure with tubular necrosis; M25.462 Effusion, left knee; T38.0X5A Adverse effect of glucocorticoids and synthetic analogues, initial encounter; T44.5X5A Adverse effect of predominantly beta-adrenoreceptor agonists, initial encounter; Y92.89 Other specified places as the place of occurrence of the external cause; Z68.37 Body mass index [BMI] 37.0-37.9, adult; Z88.8 Allergy status to other drugs, medicaments and biological substances; Z79.82 Long term (current) use of aspirin; Z79.899 Other long term (current) drug therapy
CPT/HCPCS: 36415; 71045; 73562; 80048; 80053; 80061; 80305; 81003; 82607; 82746; 83036; 83540; 83550; 83735; 84550; 85025; 93005; 93970; 97162; 99291; J1200; J1650; J2930; J3490

== ENCOUNTER 2022-02-24 09:44 | Emergency (ER) | payer MEDICAID ==
[~2022-02-24] VITALS: Ht 177.8 cm; Wt 125.0 kg
[~2022-02-24 09:44] MED LIST changes: +ALBU6.7H3 INH; +ASPI-1497 MT; +COR25 MT; +FURO80TA3 MT; +HYDR-4134 MT; +ISOS30TA91 MT; +LISI20TA31 MT; -LOSA50TA41 PO; +MULT-1116 MT; +SPIR25TA6 PO
[2022-02-24] MEDS ORDERED: ONDANSETRON HCL 4MG/2ML INJ IV ONE (10:30)
[2022-02-24] MEDS ORDERED: SODIUM CHLORIDE 0.9% 1,000 ML IV ONE (10:30)
[2022-02-24] MEDS ORDERED: FAMOTIDINE 20MG/2ML VIAL IV ONE (10:30)
[2022-02-24 11:18] LABS: HEMATOCRIT. 42.7 % (42.0-52.0); HEMOGLOBIN. 14.2 g/dL (14.0-18.0); MEAN CORPUSCULAR HEMOGLOBIN 29.9 pg (28.0-32.0); MEAN CORPUSCULAR VOLUME 89.8 fL (80.0-94.0); MEAN PLATELET VOLUME 10.5 fl (7.4-10.4); PLATELET 156 x1000/uL (130-400); RED BLOOD CELL COUNT 4.75 mill/uL (4.7-6.1)
[2022-02-24 11:25] LABS: CHLORIDE 104 mEq/L (98-107)
[2022-02-24 11:28] LABS: INR 1.2; PROTHROMBIN TIME 12.8 sec (9.6-11.0)
[2022-02-24 12:19] LABS: PLATELET ESTIMATE NORMAL
[2022-02-24] MEDS ORDERED: ASPIRIN 81MG TABLET PO SCH (12:30)
[2022-02-24 15:20] LABS: CLARITY URINE CLEAR (CLEAR); COLOR URINE YELLOW (YELLOW); KETONES URINE NEGATIVE (NEGATIVE); LEUKOCYTE ESTERASE URINE 3+ (NEGATIVE); NITRITE URINE NEGATIVE (NEGATIVE); OCCULT BLOOD URINE NEGATIVE (NEGATIVE); PH URINE 5.5 (4.5-8.0); PROTEIN URINE NEGATIVE (NEGATIVE); SPECIFIC GRAVITY URINE 1.009 (1.005-1.030)
[2022-02-24] MEDS ORDERED: CEFTRIAXONE 1 G PREMIX 50 ML IV NR (17:15)
[2022-02-24] MEDS ORDERED: CEFP200T13 MT (18:11)
[2022-02-24 19:00] VITALS: BP 121/97
== END 2022-02-24 21:33 | disposition home or self-care (01) ==
LOC: ER 09:44
DX: R10.9 Unspecified abdominal pain (principal); R11.2 Nausea with vomiting, unspecified; I11.0 Hypertensive heart disease with heart failure; I50.9 Heart failure, unspecified; Z79.899 Other long term (current) drug therapy
CPT/HCPCS: 36415; 71045; 74176; 80053; 81003; 83690; 84484; 85025; 85610; 87077; 87086; 87186; 93005; 96361; 96365; 96375; 99285; J0696; J2405; J3490; J7030; Z7610

== ENCOUNTER 2024-06-27 09:18 | Emergency (ER) | payer MEDICARE, MEDICAID ==
[~2024-06-27] VITALS: Ht 175.3 cm; Wt 131.5 kg
[~2024-06-27 09:18] MED LIST changes: +ALBU18HF2 IH; -ALBU6.7H3 INH; +ALLO100T PO; -ASPI-1497 MT; +ATOR40TA70 PO; +CARV25TA47 PO; -COR25 MT; -FURO80TA3 MT; +FURO80TA3 PO; -HYDR-4134 MT; +INSNOV SUBCUT; +INSU100I24 SQ; -ISOS30TA91 MT; +ISOS30TA91 PO; -LISI20TA31 MT; +LOSA50TA41 PO; -MULT-1116 MT; +PANT20TA17 PO
[2024-06-27 09:31] VITALS: O2SAT 97
[2024-06-27] MEDS: FAMOTIDINE 20MG TABLET PO ONE (10:45)
[2024-06-27 12:31] LABS: BASOPHILS % 0.4 % (0.0-2.0); HEMATOCRIT. 47.7 % (42.0-52.0); HEMOGLOBIN. 15.2 g/dL (14.0-18.0); LYMPHOCYTES % 25.7 % (20.0-50.0); MEAN CORPUSCULAR HEMOGLOBIN 29.7 pg (28.0-32.0); MEAN PLATELET VOLUME 8.9 fl (7.4-10.4); MONOCYTES % 7.8 % (2.0-8.0); NEUTROPHILS % 64.1 % (40.0-76.0); PLATELET 227 x1000/uL (130-400); RED BLOOD CELL COUNT 5.13 mill/uL (4.7-6.1); RED CELL DISTRIBUTION WIDTH 14.7 % (11.6-14.6); WHITE BLOOD COUNT 7.8 x1000/uL (4.5-11.0)
[2024-06-27 12:41] LABS: CARBON DIOXIDE 25 mEq/L (21-32); CHLORIDE 107 mEq/L (98-107); POTASSIUM 4.3 mEq/L (3.5-5.1); SODIUM 144 mEq/L (136-145)
[2024-06-27 12:42] LABS: CALCIUM 10.3 mg/dL (8.7-10.4)
[2024-06-27 12:46] LABS: CREATININE 3.2 mg/dL (0.6-1.3)
[2024-06-27 12:47] LABS: GLUCOSE 97 mg/dL (70-105); UREA NITROGEN BLOOD 55 mg/dL (9-23)
[2024-06-27 12:48] LABS: ALANINE AMINOTRANSFERASE 31 IU/L (10-49); ASPARTATE AMINOTRANSFERASE 24 IU/L (<34)
[2024-06-27 12:49] LABS: BILIRUBIN TOTAL 0.9 mg/dL (0.1-1.0); PROTEIN TOTAL 7.9 g/dL (6.0-8.3)
[2024-06-27 14:11] VITALS: BP 111/68; PULSE 80; RESP 16; TEMP 36.8; O2SAT 97
== END 2024-06-27 14:15 | disposition home or self-care (01) ==
LOC: ER 09:18
DX: R19.7 Diarrhea, unspecified (principal); R10.9 Unspecified abdominal pain; I11.0 Hypertensive heart disease with heart failure; I50.9 Heart failure, unspecified; K57.30 Diverticulosis of large intestine without perforation or abscess without bleeding; M19.90 Unspecified osteoarthritis, unspecified site; Z79.82 Long term (current) use of aspirin; Z79.899 Other long term (current) drug therapy; Z88.8 Allergy status to other drugs, medicaments and biological substances
CPT/HCPCS: 36415; 74176; 80053; 85025; 99284

== ENCOUNTER 2025-01-04 13:28 | Emergency (ER) | payer MEDICARE, MEDICAID ==
[~2025-01-04] VITALS: Ht 175.3 cm; Wt 120.0 kg
[2025-01-04 13:38] VITALS: O2SAT 97
[2025-01-04] MEDS: TETANUS, DIPHTHERIA, PERTUSSIS VAC/PF 0.5ML (>10YR OLD) IM ONE (14:19)
[2025-01-04] MEDS: LIDOCAINE HCL 1% 20ML VIAL INFIL ONE (14:20)
[2025-01-04] MEDS: ACETAMINOPHEN 500MG TABLET PO ONE (14:20)
[2025-01-04] MEDS: BACITRACIN ZINC OINT UDPKT TOP ONE (14:20)
[2025-01-04] MEDS ORDERED: BO1 TP (14:42)
[2025-01-04 14:47] VITALS: BP 132/82; PULSE 92; RESP 18; TEMP 36.8; O2SAT 98
== END 2025-01-04 14:59 | disposition home or self-care (01) ==
LOC: ER 13:28
DX: S61.011A Laceration without foreign body of right thumb without damage to nail, initial encounter (principal); E11.9 Type 2 diabetes mellitus without complications; I11.0 Hypertensive heart disease with heart failure; I50.9 Heart failure, unspecified; M19.90 Unspecified osteoarthritis, unspecified site; Z79.899 Other long term (current) drug therapy; Z79.82 Long term (current) use of aspirin; Z79.4 Long term (current) use of insulin; Z88.8 Allergy status to other drugs, medicaments and biological substances; W18.30XA Fall on same level, unspecified, initial encounter; Y93.01 Activity, walking, marching and hiking; Y92.89 Other specified places as the place of occurrence of the external cause; Y99.8 Other external cause status
CPT/HCPCS: 99283; 90715; 12002; 90471; J2003